=== PATIENT | male | born 2000 | race Caucasian/White ===

== ENCOUNTER 2019-01-20 09:00 | Emergency (ER) | payer OTHER, SELFPAY ==
--- NOTE | 2019-01-20 09:02 | ED_ITS ---
HPI - Skin/Abscess/Foreign Bdy General Chief complaint: Skin/Abscess/Foreign Body Stated complaint: Rash back of Rt leg Time Seen by Provider: 01/20/19 09:02 Source: patient Mode of arrival: ambulatory Limitations: no limitations History of Present Illness HPI narrative: Otherwise healthy 18-year-old male here for evaluation of a area on the back of his right leg that he thinks may be an abscess. Patient states t hat he has noticed it starting a couple days ago. He has had MRSA in the past. Has had abscesses the needed drained in the past. Put some peroxide over the area in question today without any improvement. Related Data Previous Rx's Medication Instructions Recorded doxycycline hyclate 100 mg PO BID 5 Days #10 tab 01/20/19 Allergies Allergy/AdvReac Type Severity Reaction Status Date / Time No Known Drug Allergies Allergy Verified 01/20/19 09:13 Review of Systems Musculoskeletal Comments: No right hip pain Integumentary/Breasts Comments: Redness and swelling on the back of the right leg Neurologic Comments: No neurologic symptoms Hematologic/Lymphatic Denies easy bleeding and Denies easy bruising [facility] History MRSA cellulitis (Acute) Social History lives independently: Yes Smoking Status: Current every day smoker Social History lives independently: Yes Smoking Status: Current every day smoker Exam Initial Vital Signs Initial Vital Signs: Vital Signs Temperature 97.7 F 01/20/19 09:05 Pulse Rate 85 01/20/19 09:05 Respiratory Rate 18 01/20/19 09:05 Blood Pressure 135/68 01/20/19 09:05 Pulse Oximetry 100 01/20/19 09:05 Resp Effort & Inspection: normal respiratory effort Skin Other: Patient with a 2 cm area of induration on the posterior medial proximal right leg. Neuro General: alert and awake Extrem General: normal to inspection and capillary refill normal Psych Appearance: grossly normal and well kempt Course Vital Signs - 8 hr 01/20/19 09:05 Temperature 97.7 F Pulse Rate 85 Respiratory Rate 18 Blood Pressure 135/68 Pulse Oximetry 100 MDM - Skin/Abscess/Foreign Bdy MDM Narrative Medical decision making narrative: Bedside ultrasound shows no definitive abscess. He does have an area what appears to be cellulitis in the back of his leg. He is not allergic to any medications. Because he has a history of MRSA will start medications to cover for this even though he does not have definitive abscess today. He was given return precautions and follow-up instructions. He expressed understanding and agreement with plan. Discharge Plan Departure Patient Disposition: Home Clinical Impression: Cellulitis Qualifiers: Site of cellulitis: extremity Site of cellulitis of extremity: lower extremity Laterality: right Qualified Code(s): L03.115 - Cellulitis of right lower limb Instructions: DI for Cellulitis -- Adult Activity Restrictions/Additional Instructions: There was no abscess seen on the ultrasound today. Take the antibiotics as directed. Contact your medical department for a follow-up. Return to the emergency department for any new or worsening symptoms Prescriptions: New doxycycline hyclate 100 mg tablet 100 mg PO BID 5 Days Qty: 10 RF: 0
[2019-01-20 09:05] VITALS: BP 135/68; PULSE 85; RESP 18; TEMP 36.5; O2SAT 100
--- NOTE | 2019-01-20 09:59 | PC.NURSE ---
slight redness on rt upper inner thigh, no drainage noted. about size of a quarter.
== END 2019-01-20 09:35 | disposition home or self-care (01) ==
PROVIDERS: Emergency Provider Emergency Medicine
DX: L03.115 Cellulitis of right lower limb (principal)
CPT/HCPCS: 99282; 99283